=== PATIENT | male | born 1980 | race Two or more races ===

== ENCOUNTER 2017-04-12 20:07 | Emergency (ER) | payer MEDICAID, OTHER ==
[~2017-04-12] VITALS: Ht 182.9 cm; Wt 102.1 kg
--- NOTE | 2017-04-12 20:15 | NUR ---
BBRA; "I FEEL LIKE HURTING MY SELF", SUICIDAL PRECAUTIONS IMPLEMENTED, NAD NOTED, VSS, RESP EVEN AND UNLABORED, SKIN WARM AND DRY. PT PUT ON MONITOR, WAITING FOR MD AGUILAR.
[2017-04-12 20:31] LABS: BASOPHILS % (AUTO) 0.4 % (0.0-2.0); EOSINOPHILS % (AUTO) 0.7 % (0.0-6.0); HEMATOCRIT 47 % (39-51); HEMOGLOBIN 15.7 g/dL (13.5-17.5); LYMPHOCYTES # (AUTO) 2.5 /CMM (0.8-4.8); MEAN CORPUSCULAR HEMOGLOBIN 30 PG (26.0-33.0); MEAN CORPUSCULAR HGB CONC 34 g/dl (31.0-36.0); MEAN CORPUSCULAR VOLUME 88 fL (80-96); MONOCYTES # (AUTO) 0.4 /CMM (0.1-1.30); MONOCYTES % (AUTO) 6.4 % (2.0-12.0); NEUTROPHILS # (AUTO) 2.8 /CMM (1.8-8.9); NEUTROPHILS % (AUTO) 48.5 % (43.0-81.0); PLATELET COUNT (AUTO) 260 /CMM (150-450); RDW COEFFICIENT OF VARIATION 15.2 (11.5-15.0); RED BLOOD CELL COUNT(AUTO) 5.29 MIL/uL (4.5-6.0); WHITE BLOOD COUNT (AUTO) 5.7 K/uL (4.3-11.0)
[2017-04-12 20:41] LABS: CALCIUM, SERUM 8.9 mg/dL (8.5-10.1); CARBON DIOXIDE 23 mmol/L (21-32); CHLORIDE 108 mmol/L (98-107); CREATININE 0.8 mg/dL (0.6-1.3); GLUCOSE 124 mg/dL (74-106); POTASSIUM 3.8 mmol/L (3.5-5.1); SODIUM SERUM 145 mmol/L (136-145); UREA NITROGEN, BLOOD 12 mg/dL (7-18)
[2017-04-12 20:46] LABS: ALANINE AMINOTRANSFERASE 22 U/L (12-78); ALBUMIN 4.3 g/dL (3.4-5.0); ALCOHOL, BLOOD 272 mg/dL (0-0); ALKALINE PHOSPHATASE 93 U/L (46-116); ASPARTATE AMINOTRANSFERASE 32 U/L (15-37); BILIRUBIN,DIRECT 0.1 mg/dL (0.0-0.2); BILIRUBIN,TOTAL 0.4 mg/dL (0.2-1.0); SALICYLATE 3.5 mg/dL (2.8-20.0); TOTAL PROTEIN, SERUM 7.7 g/dL (6.4-8.2)
[2017-04-12 20:47] LABS: ACETAMINOPHEN < 10 ug/ml (10-30)
[2017-04-12] MEDS ORDERED: diphenhydrAMINE HCL 50 MG/ML VIAL ONE (20:50)
[2017-04-12] MEDS ORDERED: HALOPERIDOL LACTATE INJ 5 MG/ML VIAL ONE (20:50)
[2017-04-12] MEDS ORDERED: LORAZEPAM INJ 2 MG/ML VIAL ONE (20:51)
[2017-04-12 20:55] LABS: APPEARANCE,URINE Clear (CLEAR); BILIRUBIN,URINE Negative (NEGATIVE); BLOOD, URINE Negative Ery/uL (NEGATIVE); COLOR,URINE Yellow (YELLOW); KETONES,URINE Negative (NEGATIVE); LEUKOCYTE ESTERASE ,URINE Negative (NEGATIVE); NITRITE, URINE Negative (NEGATIVE); PH,URINE 5.5 (5.0-8.0); PROTEIN,URINE Negative (NEGATIVE); UGLUCOSE Negative (NEGATIVE); UROBILINOGEN,URINE 0.2 EU/dL (0.2)
[2017-04-12] MEDS ORDERED: LORAZEPAM INJ 2 MG/ML VIAL IM ONE (21:00)
[2017-04-12] MEDS ORDERED: HALOPERIDOL LACTATE INJ 5 MG/ML VIAL IM ONE (21:00)
[2017-04-12] MEDS ORDERED: diphenhydrAMINE HCL 50 MG/ML VIAL IM ONE (21:00)
--- NOTE | 2017-04-12 22:31 | NUR ---
Patient is resting comfortably in bed with eyes closed. Easily aroused. VSS
--- NOTE | 2017-04-12 23:22 | NUR ---
REPORT GIVEN TO PIPELINES SUPERVISOR.
--- NOTE | 2017-04-12 23:22 | NUR ---
Patient is resting comfortably in bed with eyes closed. Easily aroused. VSS
--- NOTE | 2017-04-13 04:28 | NUR ---
art elevator attendant at bedside for eval.
--- NOTE | 2017-04-13 10:40 | NUR ---
CALLED FOR TRANSPORT. ETA [id number]
--- NOTE | 2017-04-13 13:14 | NUR ---
CALLED [facility] 6 TIMES AND GOT TRANSFERRED AND DISCONNECTED OR HUNG UP BY NURSE.
[2017-04-13 13:16] VITALS: BP 150/110
== END 2017-04-13 13:26 ==
LOC: ER 20:09
DX: F23 Brief psychotic disorder (principal); F10.129 Alcohol abuse with intoxication, unspecified; F32.9 Major depressive disorder, single episode, unspecified
CPT/HCPCS: 36415 ×2; 80048; 80076; 80305; 80329; 81001; 85025; 96372 ×2; 99285; G0480 ×3; J1200; J1630; J2060; 81000-TC